=== PATIENT | female | born 1965 | race African-American/Black ===

== ENCOUNTER 2022-09-28 06:55 | Emergency (ER) | payer BC, MEDICAID ==
[~2022-09-28] VITALS: Ht 175.3 cm; Wt 137.0 kg
[2022-09-28 07:08] VITALS: BP 130/61
[2022-09-28 07:45] LABS: BASOPHILS % 0.7 % (0.0-2.0); EOSINOPHILS % 1.6 % (0.0-5.0); HEMATOCRIT. 38.6 % (36.0-48.0); HEMOGLOBIN. 12.9 g/dL (12.0-16.0); LYMPHOCYTES % 15.2 % (20.0-50.0); MEAN CORPUSCULAR HEMOGLOBIN 28.7 pg (28.0-32.0); MEAN PLATELET VOLUME 8.4 fl (7.4-10.4); MONOCYTES % 6.6 % (2.0-8.0); NEUTROPHILS % 75.9 % (40.0-76.0); PLATELET 267 x1000/uL (130-400); RED BLOOD CELL COUNT 4.49 mill/uL (4.2-5.4); RED CELL DISTRIBUTION WIDTH 14.8 % (11.6-14.6)
[2022-09-28 07:52] LABS: CHLORIDE 113 mEq/L (98-107)
[2022-09-30] MEDS ORDERED: XAR15 PO (10:34)
[2022-09-30] MEDS ORDERED: RIVA20TA PO (10:34)
== END 2022-09-28 10:36 | disposition home or self-care (01) ==
LOC: ER 06:55
DX: I82.433 Acute embolism and thrombosis of popliteal vein, bilateral (principal); I49.9 Cardiac arrhythmia, unspecified
CPT/HCPCS: 36415; 71045; 80053; 83880; 84484; 85025; 93005; 93970; 99285

== ENCOUNTER 2023-10-18 11:37 | Emergency (ER) | payer MEDICARE, MEDICAID ==
[~2023-10-18] VITALS: Ht 175.3 cm; Wt 106.5 kg
[~2023-10-18 11:37] MED LIST: RIVA20TA PO; XAR15 PO
[2023-10-18 12:05] VITALS: TEMP 98.2; O2SAT 100
[2023-10-18] MEDS: IBUPROFEN 600MG TABLET PO ONE (13:00)
[2023-10-18] MEDS ORDERED: DICL100G58 TP (14:13)
[2023-10-18 15:23] VITALS: BP 135/80; PULSE 76; RESP 18
== END 2023-10-18 15:24 | disposition home or self-care (01) ==
LOC: ER 11:37
DX: M17.0 Bilateral primary osteoarthritis of knee (principal)
CPT/HCPCS: 73562; 93971; 99284

== ENCOUNTER 2024-04-04 07:37 | Emergency (ER) | payer MEDICARE, MEDICAID ==
[~2024-04-04] VITALS: Ht 175.3 cm; Wt 106.0 kg
[~2024-04-04 07:37] MED LIST changes: +DICL100G58 TP
[2024-04-04 07:44] VITALS: O2SAT 100
[2024-04-04] MEDS ORDERED: PERM60CR4 TP (08:11)
[2024-04-04] MEDS ORDERED: SULF1TAB48 MT (08:11)
[2024-04-04 08:20] VITALS: BP 136/71; PULSE 86; RESP 18; TEMP 36.94740; O2SAT 100
== END 2024-04-04 08:30 | disposition home or self-care (01) ==
LOC: ER 07:59
DX: L73.2 Hidradenitis suppurativa (principal); Z79.899 Other long term (current) drug therapy
CPT/HCPCS: 99283